=== PATIENT | male | born 1955 | race Caucasian/White ===

== ENCOUNTER 2016-12-11 18:43 | Emergency (ER) | payer OTHER ==
[~2016-12-11] VITALS: Ht 188 cm; Wt 115.9 kg
[~2016-12-11 18:43] MED LIST: ADVAIR HFA120 INHALA IH; APRESOLINE50 MG PO; ASPIRIN E.C.81 M1 PO; COREG25 M1 PO; COZAAR100 MG PO; DILTIAZEM 24HR120 MG PO; LASIX40 MG PO; LEVAQUIN750 MG PO; LIORESAL10 MG PO; LOPRESSOR25 MG PO; METFORMIN HCL500 MG PO; NOHOMEMEDS; PREDNISONE10 MG PO; SPIRIVA1 INHALATI IH; VENTOLIN HFA18 GM IH; XARELTO20 MG PO
[2016-12-11] MEDS ORDERED: FLEXERIL10 MG PO (20:13)
[2016-12-11] MEDS ORDERED: MEDROL DOSEPAK4 MG PO (20:13)
[2016-12-11 20:35] VITALS: BP 123/99
== END 2016-12-11 20:36 | disposition home or self-care (01) ==
LOC: EME 18:43
DX: M54.41 Lumbago with sciatica, right side (principal); M51.16 Intervertebral disc disorders with radiculopathy, lumbar region; I48.91 Unspecified atrial fibrillation; I50.9 Heart failure, unspecified; I10 Essential (primary) hypertension; Z95.818 Presence of other cardiac implants and grafts; Z91.14 Patient's other noncompliance with medication regimen; Z79.01 Long term (current) use of anticoagulants; F17.200 Nicotine dependence, unspecified, uncomplicated; Z98.1 Arthrodesis status
CPT/HCPCS: 72100; 99281; 99283; J3010; J7512

== ENCOUNTER 2017-02-13 18:17 | Inpatient (IN) | payer OTHER ==
[~2017-02-13] VITALS: Ht 188 cm; Wt 111.3 kg
[~2017-02-13 18:17] MED LIST changes: +FLEXERIL10 MG PO; +MEDROL DOSEPAK4 MG PO
[2017-02-13 19:48] LABS: BASOPHIL COUNT 0.1 K/uL (0-0.1); EOSINOPHIL (%) 0.7 % (0-5); EOSINOPHIL COUNT 0.1 K/uL (0-0.3); HEMATOCRIT 53.4 % (38.0-50.0); IMMATURE GRANULOCYTE (%) 2.1 % (0.0-0.7); IMMATURE GRANULOCYTE COUNT 0.3 K/uL; INSTRUMENT ABS NEUTROPHIL CT 10.2 K/uL; MCH 28.5 PG (29.0-34.0); MCHC 33.7 G/DL (30.0-36.0); MCV 84.5 FL (86-99); MEAN PLAT.VOLUME 9.4 uM^3 (9.0-12.4); MONOCYTE (%) 3.8 % (3-12); MONOCYTE COUNT 0.5 K/uL (0-0.8); NEUTROPHIL (%) 84.7 % (45-76); NEUTROPHIL COUNT 10.2 K/uL (1.8-6.4); PLATELET COUNT 238 K/uL (156-360); RBC DIS.WIDTH-CV 15.9 % (11.8-14.6); RBC DIS.WIDTH-SD 46.2 % (39-53); RED BLOOD COUNT 6.32 M/uL (4.00-5.50)
[2017-02-13 19:58] LABS: CHLORIDE 105 mEq/L (99-109); POTASSIUM 3.6 mEq/L (3.7-5.4); SODIUM 136 mEq/L (136-147)
[2017-02-13 19:59] LABS: MAGNESIUM 1.7 mg/dL (1.3-2.7)
[2017-02-13 20:00] LABS: GLUCOSE 190 mg/dL (70-99)
[2017-02-13 20:02] LABS: ANION GAP 11 MEQ/L (2-14); TOTAL BILIRUBIN 3.2 mg/dL (0.0-1.0)
[2017-02-13 20:04] LABS: ALKALINE PHOSPHATASE 81 IU/L (3-129); GFR ESTIMATE (CALCULATED) > 59 mL/min/
[2017-02-13 20:05] LABS: UREA NITROGEN (BUN) 20 mg/dL (9-23)
[2017-02-13 20:13] LABS: TROP-I INTERPRETATION NEGATIVE; TROPONIN-I 0.01 ng/mL (0.0-0.30)
[2017-02-14 04:25] VITALS: BP 139/88
[2017-02-14 05:02] LABS: TROP-I INTERPRETATION NEGATIVE; TROPONIN-I 0.02 ng/mL (0.0-0.30)
[2017-02-14 08:13] VITALS: BP 143/90
[2017-02-14 08:25] LABS: HEMATOCRIT 49.4 % (38.0-50.0); MCH 28.9 PG (29.0-34.0); MCHC 33.8 G/DL (30.0-36.0); MCV 85.5 FL (86-99); MEAN PLAT.VOLUME 10.3 uM^3 (9.0-12.4); PLATELET COUNT 283 K/uL (156-360); RBC DIS.WIDTH-CV 15.3 % (11.8-14.6); RBC DIS.WIDTH-SD 47.4 % (39-53); RED BLOOD COUNT 5.78 M/uL (4.00-5.50); WHITE BLOOD COUNT 13.8 K/uL (4.1-10.2)
[2017-02-14 08:26] VITALS: BP 140/62
[2017-02-14 08:50] LABS: CHLORIDE 108 mEq/L (99-109); SODIUM 136 mEq/L (136-147)
[2017-02-14 08:52] LABS: GLUCOSE 275 mg/dL (70-99)
[2017-02-14 08:53] LABS: ANION GAP 13 MEQ/L (2-14); POTASSIUM 5.1 mEq/L (3.7-5.4)
[2017-02-14 08:56] LABS: GFR ESTIMATE (CALCULATED) > 59 mL/min/
[2017-02-14 08:57] LABS: UREA NITROGEN (BUN) 22 mg/dL (9-23)
[2017-02-14] MEDS ORDERED: MEDROL DOSEPAK4 MG PO (09:16)
[2017-02-14] MEDS ORDERED: TIZANIDINE HCL4 M1 PO (09:17)
[2017-02-14] MEDS ORDERED: GABAPENTIN300 MG PO (09:17)
[2017-02-14] MEDS ORDERED: ATENOLOL100 MG PO (09:18)
[2017-02-14] MEDS ORDERED: ATENOLOL50 MG PO (09:18)
[2017-02-14] MEDS ORDERED: ROXICODONE5 MG PO (09:18)
[2017-02-14] MEDS ORDERED: SPIRIVA1 INHALATI IH ×2 (09:19→09:20)
[2017-02-14] MEDS ORDERED: SYMBICORT60 INHALAT IH (09:19)
[2017-02-14] MEDS ORDERED: ALLOPURINOL300 MG PO (09:20)
[2017-02-14] MEDS ORDERED: NAPROSYN250 MG PO (09:20)
[2017-02-14] MEDS ORDERED: AMIODARONE HCL200 MG PO (09:20)
[2017-02-14 11:24] VITALS: BP 152/100
[2017-02-14 11:34] LABS: TOTAL BILIRUBIN 2.9 mg/dL (0.0-1.0)
[2017-02-14 11:35] LABS: ALKALINE PHOSPHATASE 78 IU/L (3-129)
[2017-02-14 11:37] LABS: DIRECT BILIRUBIN 0.6 mg/dL (0.0-0.3)
[2017-02-14 14:34] LABS: C DIFF TOXIN POSITIVE (NEGATIVE); PROBE CHECK PASS
[2017-02-14 15:25] VITALS: BP 150/88
[2017-02-14 15:51] LABS: LIPASE 26 U/L (1.0-51.0)
[2017-02-14 15:56] LABS: TROP-I INTERPRETATION NEGATIVE; TROPONIN-I 0.04 ng/mL (0.0-0.30)
[2017-02-14 19:25] VITALS: BP 131/79
[2017-02-15 00:17] VITALS: BP 158/86
[2017-02-15 04:30] VITALS: BP 180/80
[2017-02-15 05:32] LABS: HEMATOCRIT 46.6 % (38.0-50.0); MCH 28.9 PG (29.0-34.0); MCHC 33.7 G/DL (30.0-36.0); MCV 85.8 FL (86-99); MEAN PLAT.VOLUME 9.7 uM^3 (9.0-12.4); PLATELET COUNT 202 K/uL (156-360); RBC DIS.WIDTH-CV 15.5 % (11.8-14.6); RBC DIS.WIDTH-SD 48.5 % (39-53); RED BLOOD COUNT 5.43 M/uL (4.00-5.50); WHITE BLOOD COUNT 10.9 K/uL (4.1-10.2)
[2017-02-15 05:52] LABS: ANION GAP 6 MEQ/L (2-14); CHLORIDE 107 MEQ/L (99-109); GFR ESTIMATE (CALCULATED) > 59 mL/min/; GLUCOSE 162 mg/dL (70-99); SAMPLE HEMOLYSIS CHECK 0; SAMPLE ICTERIC CHECK 0; SAMPLE LIPEMIA CHECK 0; SODIUM 137 MEQ/L (136-147); UREA NITROGEN (BUN) 16 mg/dL (9-23)
[2017-02-15 05:54] LABS: TROP-I INTERPRETATION NEGATIVE; TROPONIN-I 0.02 ng/mL (0.0-0.30)
[2017-02-15 05:58] LABS: POTASSIUM 3.7 MEQ/L (3.7-5.4)
[2017-02-15 08:23] VITALS: BP 130/87
[2017-02-15] MEDS ORDERED: METRONIDAZOLE500 MG PO (11:18)
[2017-02-15 11:45] VITALS: BP 140/82
[2017-02-15 13:56] VITALS: BP 154/84
== END 2017-02-15 16:00 | disposition home health service (06) | DRG 372 ==
LOC: EME 18:17 → EDOF 02-14 02:54 → ENRESERV 02-14 02:55 → 4EAST 02-14 04:23
PROVIDERS: Emergency Medicine; Hospitalist; Physician Assistant
DX: A04.7 Enterocolitis due to Clostridium difficile (principal); J44.1 Chronic obstructive pulmonary disease with (acute) exacerbation; E11.9 Type 2 diabetes mellitus without complications; E78.5 Hyperlipidemia, unspecified; M54.30 Sciatica, unspecified side; K80.20 Calculus of gallbladder without cholecystitis without obstruction; K57.30 Diverticulosis of large intestine without perforation or abscess without bleeding; K42.9 Umbilical hernia without obstruction or gangrene; I50.9 Heart failure, unspecified; I48.2 Chronic atrial fibrillation; I11.0 Hypertensive heart disease with heart failure; F17.210 Nicotine dependence, cigarettes, uncomplicated; E86.0 Dehydration; E66.9 Obesity, unspecified; Z95.810 Presence of automatic (implantable) cardiac defibrillator; Z79.84 Long term (current) use of oral hypoglycemic drugs; Z79.01 Long term (current) use of anticoagulants; Z68.31 Body mass index [BMI] 31.0-31.9, adult
CPT/HCPCS: 74176; 80048; 80048 91; 80053; 80076; 83690; 83735; 84484; 85025; 85027; 87493; 93005; 94640; 94640 76; 99202; 99281; 99285; J0360; J1815; J7030; J7040

== ENCOUNTER 2017-03-21 22:08 | Emergency (ER) | payer OTHER ==
[~2017-03-21] VITALS: Ht 188 cm; Wt 113.9 kg
[~2017-03-21 22:08] MED LIST changes: +ALLOPURINOL300 MG PO; +AMIODARONE HCL200 MG PO; +ATENOLOL100 MG PO; +ATENOLOL50 MG PO; +GABAPENTIN300 MG PO; +METRONIDAZOLE500 MG PO; +NAPROSYN250 MG PO; +ROXICODONE5 MG PO; +SYMBICORT60 INHALAT IH; +TIZANIDINE HCL4 M1 PO
[2017-03-22] MEDS ORDERED: SKELAXIN800 MG PO (03:43)
[2017-03-22] MEDS ORDERED: PERCOCET 5/31 TABLET PO (03:43)
[2017-03-22] MEDS ORDERED: MEDROL DOSEPAK4 MG PO (03:43)
[2017-03-22 04:18] LABS: ADD MIUA? YES; BILIRUBIN NEGATIVE; BLOOD NEGATIVE; COLOR YELLOW ((YELLOW)); GLUCOSE (STRIP) NEGATIVE; KETONES NEGATIVE; LEUKOCYTES NEGATIVE; NITRITE NEGATIVE; PROTEIN (STRIP) >=500; SPECIFIC GRAVITY 1.012 (1.000-1.030); UROBILINOGEN 0.2 MG/DL (0.2-1.0)
[2017-03-22 04:24] VITALS: BP 142/89
[2017-03-22 04:26] LABS: BACTERIA RARE /HPF; EPITHELIAL CELLS NONE SEEN /HPF; MUCUS 1+ /LPF; RED BLOOD CELLS 0-5 /HPF (0-5); UCUL ADDED? NO; WHITE BLOOD CELLS 0-5 /HPF (0-5)
== END 2017-03-22 04:35 | disposition home or self-care (01) ==
LOC: EME 22:08
PROVIDERS: Physician Assistant
DX: M54.41 Lumbago with sciatica, right side (principal); G89.29 Other chronic pain; M48.06 Spinal stenosis, lumbar region; M47.26 Other spondylosis with radiculopathy, lumbar region; R32 Unspecified urinary incontinence; E66.3 Overweight; Z68.32 Body mass index [BMI] 32.0-32.9, adult; I48.91 Unspecified atrial fibrillation; Z79.01 Long term (current) use of anticoagulants; I11.0 Hypertensive heart disease with heart failure; I50.9 Heart failure, unspecified; J44.9 Chronic obstructive pulmonary disease, unspecified; M17.0 Bilateral primary osteoarthritis of knee; Z95.0 Presence of cardiac pacemaker; Z87.891 Personal history of nicotine dependence
CPT/HCPCS: 72131; 81003; 99281; 99284; J3010